=== PATIENT | male | born 1980 | race Caucasian/White ===

== ENCOUNTER 2016-09-10 10:36 | Day surgery (SDC) | payer BC ==
--- NOTE | 2016-09-04 18:36 | HP ---
PREOPERATIVE HISTORY AND PHYSICAL: DATE OF ADMISSION/SURGERY: 09/10/16 DATE OF OFFICE VISIT: 09/04/16 ATTENDING SURGEON: Dr. Kyle Lagos. PROCEDURE: Left shoulder arthroscopic decompression, debridement, and possible subpectoral biceps t enodesis and possible rotator cuff repair. CHIEF COMPLAINT: Left shoulder pain. HISTORY OF PRESENT ILLNESS: Vel is a 36-year-old male, who presents to the clinic for followup of left shoulder pain due to impingement syndrome and biceps tendinitis. The patient received an i njection on 07/24/16, which completely got rid of his pain for a couple of weeks; however, the pain has gradually returned. He has anterior and lateral shoulder pain, he rates as a 4/10 and it is cons tant and achy. It is worse with activities such as sweeping and raising the arm overhead. He gets some intermittent sharp shooting 7/10 pain with lying down. He is on physical therapy, which has no t helped, using ibuprofen daily for the pain. He denies dislocation. He denies numbness, tingling, chest pain, or shortness of breath. He is a current smoker and smokes 1 pack per day. He has faile d conservative measures and has therefore agreed to undergo a left shoulder arthroscopic decompressi on, debridement, subpectoral biceps tenodesis, and possible rotator cuff repair with Dr. Lagos on 0 09/10/16. PAST MEDICAL HISTORY: Denies current problems. PAST SURGICAL HISTORY: Left knee surgery in 2009. MEDICATIONS: Ibuprofen 200 mg 2 by mouth at night as needed. ALLERGIES: No known drug allergies. FAMILY HISTORY: Positive for diabetes in maternal grandmother, heart disease in maternal grandfathe r, and high blood pressure in father. SOCIAL HISTORY: He lives with his girlfriend. 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 He smokes 1 pack per day x19 years. He reports occasional alcohol consumption. He exercises occasionally. He is left-hand dominant. REVIEW OF SYSTEMS: General: Negative for fever, chills, night sweats. No known anesthesia problem s. HEENT: Negative for headaches, lightheadedness, or syncopal episodes. Integumentary: Negative for abrasions, lesions, or open wounds. Cardiothoracic: Negative for chest pain, palpitations, tyrone ma, or hypertension. Pulmonary: Negative for shortness of breath with exertion, chronic cough, or C OPD. GI: Negative for nausea, vomiting, diarrhea, constipation, or GERD. : Negative for nocturi a, urinary frequency, history of UTIs, or kidney problems. Musculoskeletal: Positive for the curren t complaint. Neuro: Negative for paresthesia, numbness, history of seizure, stroke, or epilepsy. Heme: Negative for easy bruising, anemia, excessive bleeding, or history of DVT or PE. Infectious Disease: Negative for history of MRSA, hep C, or HIV. PHYSICAL EXAMINATION GENERAL: Well-developed, well-nourished, 36-year-old male in no acute distress. Alert and oriented x3. Appropriate mood and affect. VITAL SIGNS: Height 70, weight 250. Pulse 89, blood pressure 137/90, temperature 97.4. BMI 35.9. HEENT: Normocephalic, atraumatic. PERRLA. NECK: Supple. Throat clear. PULMONARY: Lungs clear to auscultation bilaterally. No wheezing, rhonchi, or rales. CARDIO: Regular rate and rhythm. S1, S2. No murmurs, gallops, or rubs. No edema. ABDOMEN: Positive bowel sounds. Soft, nontender. MUSCULOSKELETAL: Left upper extremity: The skin is intact. No warmth or erythema. Tenderness to palpation over the subacromial space in the proximal biceps tendon. Forward flexion to 160 degrees, abduction to 160 degrees, external rotation to 45 degrees, internal rotation to the lumbar spine. Weakness and pain to supraspinatus testing, good strength with discomfort over the infraspinatus, be lly-press and bear-hug. Positive Neer, [place], mildly positive Speed's. +2 radial pulse, +2 ulnar pulse. Sensation is intact to light touch distally. Right upper extremity: The skin is intact. Full range of motion of the shoulder to include external rotation to 45, internal rotation to T10. Nontender to palpation. +2 radial pulse. Good strength to rotator cuff testing and sensation is int act to light touch distally. NEURO: Alert and oriented x3. Cranial nerves grossly intact. Sensation is intact to light touch. DIAGNOSTIC STUDIES: Multiple view x-rays reveal no acute fracture or dislocation and humeral head is located. MR arthrogram reveals located humeral head with an intact rotator cuff, Hill-Sachs tatum ral impaction fracture and Bankart lesion on the anterior and inferior labrum. IMPRESSION: Left shoulder impingement syndrome, biceps tendinitis, possible rotator cuff tear. PLAN: The patient is scheduled to undergo a left shoulder arthroscopic decompression, debridement, and possible subpectoral biceps tenodesis, and possible rotator cuff repair with Dr. Lagos on 09/10. The patient was instructed to quit smoking prior to surgery to aid in healing. He will return to the office 10 to 14 days postop for followup and suture removal. Percocet will be used postoper atively for pain management. WHITNEY OLEARY [id number]/[facility] #: [id number]
[~2016-09-10 10:36] MED LIST: Buffered Lidocaine 1% SYRIN* 3 ML/SYR SYRINGE INTRADERM ONE; Famotidine IV* 10 MG/ML 2 ML (20 mg) IV ONE
[2016-09-10] MEDS ORDERED: ceFAZolin 2 GM PREMIX(*) 2 GM/50 ML BAG IVPB ONE (11:32)
[2016-09-10] MEDS ORDERED: Famotidine IV* 10 MG/ML 2 ML (20 mg) ONE (11:32)
[2016-09-10] MEDS ORDERED: HYDROmorphone* 1 MG/ML 1 ML SYR IV PRN (12:21)
[2016-09-10] MEDS ORDERED: oxyCODONE/Acetamin 5/325 MG* TAB PO PRN (12:21)
[2016-09-10] MEDS ORDERED: Acetaminophen TAB* 325 MG PO PRN (12:21)
[2016-09-10] MEDS ORDERED: DiMENhydriNATE IV* 50 MG/ML VIAL IV PUSH PRN (12:21)
[2016-09-10] MEDS ORDERED: fentaNYL* 50 MCG/ML 2 ML VIAL (100 MCG VIAL) ONE ×2 (12:32→14:19)
[2016-09-10] MEDS ORDERED: KETAMINE HCL* 50 MG/ML 10 ML VIAL ONE (12:32)
[2016-09-10] MEDS ORDERED: Midazolam* 1 MG/ML 5 ML VIAL (5 MG) ONE (12:32)
[2016-09-10] MEDS ORDERED: Bupivacaine 0.25% SDV* 30 ML ONE (13:02)
[2016-09-10] MEDS ORDERED: ROPIVACAINE 5 MG/ML 30 ML BTL (0.5%) ONE (13:24)
[2016-09-10] MEDS ORDERED: Lidocaine 2% PF * 5 ML VIAL ONE (14:06)
[2016-09-10] MEDS ORDERED: Ondansetron INJ* 2 MG/ML VIAL ONE (14:06)
[2016-09-10] MEDS ORDERED: Ketorolac INJ* 30 MG/ML 1 ML VIAL ONE (14:06)
[2016-09-10] MEDS ORDERED: Dexamethasone IV* 4 MG/ML 1 ML (4 MG) ONE (14:06)
[2016-09-10] MEDS ORDERED: Propofol* 10 MG/ML 20 ML BTL IV PUSH ONE (14:06)
[2016-09-10] MEDS ORDERED: methylPREDNISolone ACETATE 80* 80 MG/ML 1 ML VIAL ONE (15:56)
[2016-09-10 16:26] VITALS: BP 140/84
--- NOTE | 2016-09-11 16:55 | OP ---
DATE OF OPERATION: 09/10/16 - [facility] DATE OF : 82 SURGEON: Kyle Lagos MD GUEST RELATIONS MANAGER: WHITNEY Elder. An therapy assistant was needed for the entirety of the case to help with positioning, retraction, and was utilized throughout all portions of the case. ANESTHESIOLOGIST: Dr. Pride. ANESTHESIA: General interscalene block. PRE-OP DIAGNOSES: Left shoulder impingement and bicipital tendinitis status post traumatic dislocation. POST-OP DIAGNOSES: Left shoulder impingement and bicipital tendinitis status post traumatic dislocation. OPERATIVE PROCEDURE: Left shoulder arthroscopy with glenohumeral debridement, subacromial decompression with acromioplasty, and subpectoral biceps tenodesis. INDICATIONS: Vel Dupont is a young gentleman, who sustained injury in April where he fell and sustained a traumatic anterior shoulder dislocation. He continue to rehab. His shoulder had no further episodes of instability but he had persistent pain. He was failing rehab and was unable to get good mobilization of the shoulder until after an injection, which relieved all of his pain. He again had no further episodes of instability and his complaints are mostly about pain as well as catching-type sensation anteriorly. After an excessive discussion including the risks and benefits of surgery versus nonoperative management, a discussion with the patient was made beforehand that if the shoulder was unstable, we would consider in addition to decompression with biceps tenodesis. Risks included but not limited to bleeding, infection, damage to nerves, vessels, surrounding structures, wound not healing, persistent pain, need for further surgery, scarring, incomplete relief of symptoms, need for further surgery, and risk of DVT as well as risk of anesthesia. DESCRIPTION OF PROCEDURE: The patient was greeted in the preoperative area by the attending surgeon. The correct extremity was marked and consent was confirmed. The patient was brought back to the operating suite where he was placed in the supine position on the operating table. He then underwent interscalene nerve block by the anesthesiologist, after which he underwent general anesthesia and endotracheal intubation. The patient was then placed in the right lateral decubitus position with all bony prominences padded. The left arm was placed in unsterile traction frame with 15 pounds of traction. The left shoulder was prepped and draped in the usual sterile fashion with pre- scrub of chlorhexidine soap and alcohol and final prep with ChloraPrep. After appropriate surgical pause, the posterolateral portal was made sharply with an 11 blade. The scope was introduced into the joint and examined. First , due to the patient's habitus, the scope was started with subacromial space. A lateral portal was made sharply in an outside-in fashion. A shaver was used to remove the abundant bursa present. There was very narrow space between the cuff as well as the acromion. After this was done, the anterior portal was made in an outside-in fashion. Once that was established, the scope was then placed back into the posterior portal and the joint was examined. There was a [id number] superior posterior Hill-Sachs lesion. The glenoid had grade 0 to 1 changes. The superior labrum was completely torn. Anterior labrum was torn as well, but there was no evidence of shoulder dislocating or being perched. The inferior recess was intact. There was abundant synovitis and bursitis apparent into the shoulder. The electrocautery was used to do biceps tenotomy. A shaver was used to debride back the unstable labral fraying, the stump was then debrided back. The subscapularis was then identified after some adhesions were removed and was found to be in good condition. The undersurface of the supraspinatus was found to be intact as well. Once the debridement was completed, attention was directed back to the subacromial space, where the decompression was completed using a 4.0 oval bur. All loose debris and fluid was then removed from the subacromial space. An 18-gauge needle was placed under arthroscopic visualization for later Depo-Medrol injection. Attention was directed to the subpectoral biceps tenodesis and the scope was removed from the shoulder. The bed was airplaned to the left side and the anterior aspect of the shoulder was prepped again with ChloraPrep. A 15-blade was used to make an incision in line with the biceps tendon, encompassing the inferior two- thirds of the pec tendon. The dissection was carried through with Metzenbaum scissors. Once the pec fascia was identified, the remainder of the dissection was done bluntly. A Cuthbert blade was used to retract the pec superiorly. The bicipital groove was then palpated and the biceps was then removed through the wound. There were abundant adhesions and synovitis apparent. The bicipital groove was then prepared in the usual fashion with electrocautery device, the small round rasp, and then osteotome to allow for a bony bleeding bed. The drill guide was then placed in the groove and the bicipital groove drilled unicortically. A Q-FIX anchor was deployed with excellent purchase. The sutures were then passed through the tendon approximately 1 cm proximal to the musculotendinous junction in Archie August- type configuration. The excess biceps was then sharply excised and the biceps was then shuttled back into the wound and tied down with excellent fixation. The wound was copiously irrigated. Subacromial space was injected with 0.25% Marcaine with 80 mg of Depo. The portals were closed with 3-0 nylon. The anterior wound was closed in layers of 2-0 Vicryl and 3-0 Monocryl. Sterile dressings were applied as well as an UltraSling and a Cryo/Cuff. He was awoken from anesthesia and transferred to the PACU in stable condition. POSTOPERATIVE PLAN: He will be nonweightbearing. He will be in a sling for approximately 4 weeks. He will be discharged on pain medication, antibiotics. DVT prophylaxis was considered, but deferred due to no previous personal or family history. I will see the patient back in 10 to 14 days. We will likely send him to therapy in the first 10 to 14 days. CC: PCP, [facility] * [id number]/[facility] #: [id number] MTDD
== END 2016-09-10 16:28 | disposition home or self-care (01) ==
LOC: OREAST 10:36
PROVIDERS: ATTEND Orthopaedic Surgery
DX: M75.42 Impingement syndrome of left shoulder (principal); M75.22 Bicipital tendinitis, left shoulder; F17.210 Nicotine dependence, cigarettes, uncomplicated
CPT/HCPCS: 88304; C1776; J0690; J1040; J1100; J1885; J2250; J2405; J2704; J2795; J3010

== ENCOUNTER 2017-02-16 12:20 | Emergency (ER) | payer BC ==
[2017-02-16 12:30] VITALS: BP 149/79
--- NOTE | 2017-02-16 13:01 | UC ---
Respiratory Complaint HPI - HPI Summary HPI Summary: cough x 3 days chest congestion , nasal congestion , pnd no fever , no chills - History of Current Complaint Chief Complaint: UCRespiratory Stated Complaint: CHEST CONGESTION, COUGH Time Seen by Provider: 02/16/17 12:56 Hx Obtained From: Patient Onset/Duration: Gradual Onset, Lasting Days - 3, Still Present Timing: Constant Severity Initially: Moderate Severity Currently: Moderate Character: Cough: Nonproductive Aggravating Factors: Exertion, Deep Breaths Alleviating Factors: Nothing Associated Signs And Symptoms: Positive: URI, Nasal Congestion. Negative: Fever , Chills, Wheezing, Hemoptysis, Dizziness, Calf Pain, Calf Swelling - Allergies/Home Medications Allergies/Adverse Reactions: Allergies Allergy/AdvReac Type Severity Reaction Status Date / Time Lactose Intolerance (GI) Allergy Mild GI Upset Verified 02/16/17 12:30 HAY FEVER Allergy Congestion Uncoded 02/16/17 12:30 Home Medications: Home Medications Dextromethorphan-Guaifenesin [Mucinex Dm Maximum Streng 60-1200 mg] 1 tab PO BID 02/16/17 [History Confirmed 02/16/17] PMH/Surg Hx/FS Hx/Imm Hx Previously Healthy: Yes - Surgical History Surgical History: Yes Surgery Procedure, Year, and Place: LEFT knee ORTHOSCOPIC TO REPAIR LIGAMENTS 2009? Left shoulder rotator cuff 08/2016 - Family History Known Family History: Positive: Hypertension Negative: Diabetes - Social History Alcohol Use: Occasionally Alcohol Amount: 3-4 beers once a month Substance Use Type: None Smoking Status (MU): Heavy Every Day Tobacco Smoker Type: Cigarettes Amount Used/How Often: 1 pack daily, smoked for about 20 years When Did the Patient Quit Smoking/Using Tobacco: started age 16 Review of Systems Constitutional: Negative Skin: Negative Eyes: Negative ENT: Nasal Discharge Respiratory: Cough Cardiovascular: Negative Gastrointestinal: Negative Genitourinary: Negative Is Patient Immunocompromised?: No All Other Systems Reviewed And Are Negative: Yes Physical Exam Triage Information Reviewed: Yes Appearance: Well-Appearing, No Pain Distress, Well-Nourished Vital Signs: Initial Vital Signs Temp 98.1 F 02/16/17 12:26 Pulse 88 02/16/17 12:26 Resp 16 02/16/17 12:26 BP 149/79 02/16/17 12:26 Pulse Ox 98 02/16/17 12:26 Vital Signs Reviewed: Yes Eyes: Positive: Conjunctiva Clear ENT: Positive: Normal ENT inspection, Hearing grossly normal, Pharynx normal, Nasal congestion, Nasal drainage, TMs normal. Negative: Pharyngeal erythema Neck: Positive: Supple, Nontender, No Lymphadenopathy Respiratory: Positive: Chest non-tender, Lungs clear, Normal breath sounds Cardiovascular: Positive: RRR, No Murmur, Pulses Normal UC Diagnostic Evaluation - Laboratory O2 Sat by Pulse Oximetry: 98 Respiratory Course/Dx - Differential Dx/Diagnosis Provider Diagnoses: uri Discharge - Discharge Plan Condition: Stable Disposition: HOME Patient Education Materials: Upper Respiratory Infection (ED) Referrals: TERESE Clement [Primary Care Provider] - If Needed
== END 2017-02-16 13:06 | disposition home or self-care (01) ==
LOC: UCCORT 12:20
DX: J06.9 Acute upper respiratory infection, unspecified (principal); Z91.011 Allergy to milk products; Z88.8 Allergy status to other drugs, medicaments and biological substances
CPT/HCPCS: 99211; G0463